=== PATIENT | male | born 1960 | race Caucasian/White ===

== ENCOUNTER 2020-11-08 16:50 | Emergency (ER) | payer BC ==
[~2020-11-08] VITALS: Ht 172.7 cm; Wt 80.7 kg
[2020-11-08] MEDS ORDERED: LISINOPRIL10 MG (17:04)
[2020-11-08] MEDS ORDERED: TOPROL XL25 MG PO (17:04)
[2020-11-08 17:17] LABS: ABSOLUTE BASOPHILS 0.1 thou/uL (0.0-0.2); ABSOLUTE EOSINOPHILS 0.1 thou/uL (0.0-0.7); ABSOLUTE LYMPHOCYTES 2.6 thou/uL (0.8-5.3); ABSOLUTE MONOCYTES 0.9 thou/uL (0.0-1.2); ABSOLUTE NEUTROPHILS 5.6 thou/uL (1.6-8.1); BASOPHILS 1.3 %; EOSINOPHILS 0.8 %; HEMATOCRIT 38.9 % (42.0-52.0); HEMOGLOBIN 13.8 gm/dL (14.0-18.0); LYMPHOCYTES 28.3 %; MCH 34.2 pg (26.0-34.0); MCHC 35.4 g/dL (28.0-37.0); MCV 96.6 fL (80.0-100.0); MONOCYTES 9.4 %; MPV 5.8 fl. (7.2-11.1); NUCLEATED RBCS 0 /100WBC; PLATELET COUNT* 387 thou/uL (150-400); POLYS 60.2 %; RBC 4.03 mil/uL (4.50-6.00); RDW-CV 13.5 % (10.5-14.5); WBC 9.3 thou/uL (4.0-11.0)
[2020-11-08 17:55] LABS: CREATININE 0.8 mg/dL (0.6-1.3); POTASSIUM 4.2 mmol/L (3.5-5.1)
[2020-11-08 18:06] LABS: ALBUMIN 3.5 g/dL (3.4-5.0); TOTAL BILIRUBIN 0.3 mg/dL (<0.1-1.0); TOTAL PROTEIN 7.7 g/dL (6.4-8.2)
[2020-11-08] MEDS ORDERED: PREDNISONE 20 M20 M1 PO (18:14)
[2020-11-08] MEDS ORDERED: VENTOLIN HFA 1818 GM INH (18:14)
[2020-11-08] MEDS ORDERED: ZPAK PO (18:34)
[2020-11-08 18:40] LABS: URINE BILIRUBIN NEGATIVE (Negative); URINE BLOOD 1+ (Negative); URINE CLARITY CLEAR; URINE COLOR YELLOW; URINE GLUCOSE-RANDOM NEGATIVE (Negative); URINE KETONES NEGATIVE (Negative); URINE LEUKOCYTES-REFLEX NEGATIVE (Negative); URINE NITRITE-REFLEX NEGATIVE (Negative); URINE PROTEIN NEGATIVE (Negative); URINE SPECIFIC GRAVITY <= 1.005 (1.005-1.030); URINE UROBILINOGEN 0.2 E.U./dl (0.2-1.0)
[2020-11-08 18:48] LABS: BACTERIA-REFLEX None Seen /HPF (None Seen); CASTS None Seen /LPF (None Seen); CRYSTALS None Seen /LPF (None Seen); SQUAMOUS NONE SEEN /LPF (0-3); URINE RBC 0-2 Rare /HPF (0-2); URINE WBC-REFLEX None Seen /HPF (0-5)
[2020-11-08 18:52] VITALS: BP 110/54
--- NOTE | 2020-11-09 10:48 | EKG ---
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: [facility] : 1960 Requested By: [place] [address] Order Number: [id number] MD: Luther Zaragoza Measurements Intervals [place] Rate: 73 P: 69 PA: 174 QRS: 68 QRSD: 90 T: 69 QT: 381 QTc: 420 Interpretive Statements Sinus rhythm Minimal ST elevation, inferior leads Baseline wander in lead(s) I,II,aVR,aVF No previous ECG available for comparison Electronically Signed On 11-09-2020 10:47:56 CDT by Luther Zaragoza [email or web address] <ELECTRONICALLY SIGNED> By: Luther Zaragoza MD, [facility] 11/09/20 1047 1715 1715 Luther Zaragoza MD, [facility] /EPI
== END 2020-11-08 18:54 | disposition home or self-care (01) ==
LOC: M.ERS 16:50
PROVIDERS: Family Medicine
DX: J40 Bronchitis, not specified as acute or chronic (principal); F10.129 Alcohol abuse with intoxication, unspecified; Y90.8 Blood alcohol level of 240 mg/100 ml or more; E87.1 Hypo-osmolality and hyponatremia; I10 Essential (primary) hypertension